=== PATIENT | female | born 1960 ===

== ENCOUNTER → 2023-09-10 | Outpatient (CLI) | payer MEDICARE ==
--- NOTE | 2023-09-10 08:27 | US ---
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 No HTN. High cholesterol- no meds. No history AAA. TECHNIQUE: Multiple sonographic images of the abdominal aorta are obtained. 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
--- NOTE | 2023-09-10 10:38 | CA ---
Transthoracic Echo Report Name: Hafsa Luna Age: 63 Gender: F : 1960 Exam Date: 09/10/2023 08:03 Exam Location: [facility] Ht (in): 65 Wt (lb): 170 Ordering Physician: Brad Huerta DO Attending/Referring Phys: Erica Sullivan PAC Agent Contract Clerk Malena Guadalupe RDCS Procedure CPT: Indications: I77.810 THORACIC AORTIC ECTASIA R07.89 CHEST PAIN Cardiac Hx: Technical Quality: Fair Contrast 1: Total Dose (mL): Contrast 2: Total Dose (mL): MEASUREMENTS (Male / Female) Normal Values 2D ECHO LV Diastolic Diameter PLAX 4.7 cm 4.2 - 5.9 / 3.9 - 5.3 cm LV Systolic Diameter PLAX 3.3 cm IVS Diastolic Thickness 1.1 cm 0.6 - 1.0 / 0.6 - 0.9 cm LVPW Diastolic Thickness 1.0 cm 0.6 - 1.0 / 0.6 - 0.9 cm LV Relative Wall Thickness 0.4 RV Internal Dim ED PLAX 2.9 cm LA Systolic Diameter LX 3.3 cm 3.0 - 4.0 / 2.7 - 3.8 cm LV Diastolic Volume MOD BP 54.8 cm??? 67 - 155 / 56 - 104 cm??? LV Systolic Volume MOD BP 27.4 cm??? 22 - 58 / 19 - 49 cm??? LV Ejection Fraction MOD BP 50.0 % >= 55 % LV Cardiac Index MOD BP 1210.4 cm???/min???m??? LV Diastolic Volume MOD 4C 51.0 cm??? LV Systolic Volume MOD 4C 24.8 cm??? LV Ejection Fraction MOD 4C 51.4 % LV Cardiac Index MOD 4C 1158.1 cm???/min???m??? LV Diastolic Length 4C 6.2 cm LV Systolic Length 4C 5.8 cm LV Diastolic Volume MOD 2C 58.1 cm??? LV Systolic Volume MOD 2C 27.3 cm??? LV Ejection Fraction MOD 2C 53.0 % LV Cardiac Index MOD 2C 1358.4 cm???/min???m??? LV Diastolic Length 2C 6.4 cm LV Systolic Length 2C 6.6 cm M-MODE Aortic Root Diameter MM 3.1 cm LA Systolic Diameter MM 3.0 cm LA Ao Ratio MM 1.0 DOPPLER AV Peak Velocity 114.9 cm/s AV Peak Gradient 5.3 mmHg Mitral E Point Velocity 51.3 cm/s Mitral A Point Velocity 97.7 cm/s Mitral E to A Ratio 0.5 MV Deceleration Time 93.4 ms MV E' Velocity 4.9 cm/s Mitral E to MV E' Ratio 10.5 TR Peak Velocity 229.6 cm/s TR Peak Gradient 21.1 mmHg Right Ventricular Systolic Press 31.1 mmHg FINDINGS Left Ventricle Left ventricular ejection fraction is estimated at 50-55 %. No obvious regional wall motion abnormalities. Mild concentric LVH Right Ventricle Normal right ventricular size. Right ventricular systolic pressure within normal limits. Right Atrium Normal right atrial size. Left Atrium Normal left atrial size. Mitral Valve Structurally normal mitral valve. Mild mitral regurgitation. Aortic Valve Trileaflet aortic valve. No aortic valve stenosis or regurgitation. Tricuspid Valve Structurally normal tricuspid valve. Mild tricuspid regurgitation. Pulmonic Valve Pulmonic valve not well visualized. No pulmonic regurgitation. Pericardium No pericardial effusion. Aorta Normal size aortic root and proximal ascending aorta. CONCLUSIONS Left ventricular ejection fraction is estimated at 50-55 %. No obvious regional wall motion abnormalities. Mild concentric LVH. Mild MR No significant chamber size abnormality No peripheral effusion Previewed by: Dr Pollo Kapaln (Electronically Signed) Final Date: 10 September 2023 10:37
== END | disposition home or self-care (01) ==
LOC: RADUSWWP 07:29
PROVIDERS: ATTEND Family Medicine
DX: I34.0 Nonrheumatic mitral (valve) insufficiency (principal); I51.7 Cardiomegaly; I77.810 Thoracic aortic ectasia; E78.00 Pure hypercholesterolemia, unspecified; R07.89 Other chest pain
CPT/HCPCS: 76706; 93306

== ENCOUNTER 2023-09-24 12:22 | Observation (INO) | payer MEDICARE ==
[2023-09-24 12:43] LABS: Basophils # (A) 0.1 k/uL (0-0.2); Basophils % (A) 1 %; Eosinophils # (A) 0.1 k/uL (0-0.7); Eosinophils % (A) 2 %; HCT 44.4 % (34.0-46.0); Lymphocytes # (A) 2.5 k/uL (1.0-4.8); Lymphocytes % (A) 43 %; MCH 30.1 pg (25.0-35.0); MCHC 33.7 g/dL (31.0-37.0); MCV 89.1 fL (80.0-100.0); Mean Platelet Volume 6.9; Monocytes # (A) 0.3 k/uL (0-1.0); Monocytes % (A) 5 %; Neutrophils # (A) 2.7 k/uL (1.3-7.7); Neutrophils % (A) 47 %; Platelet Count 252 k/uL (150-450); RBC 4.98 m/uL (3.80-5.40); RDW 12.5 % (11.5-15.5); WBC 5.8 k/uL (3.8-10.6)
--- NOTE | 2023-09-24 12:51 | ED ---
General Adult HPI - General Chief complaint: Arrhythmia/Palpitations Stated complaint: Heart Time Seen by Provider: 09/24/23 12:35 Source: patient, RN notes reviewed, old records reviewed Mode of arrival: EMS Limitations: no limitations - History of Present Illness Initial comments: This is a 63-year-old female who presents to the emergency department stating that she has a history of high blood pressure. Patient states for the last few weeks has been short of breath. Patient states these episodes last for about 15 minutes or so. Patient states the episode today was the worst. Patient denies any kind of chest pain for the last 2 weeks. Patient states it does not seem to be associated with exertion. Patient states lately when it occurs she has been having some fluttering in her chest and she feels like she might pass out but does not pass out. Patient states she recently had an echo but has never had a catheterization and not a recent stress test. Patient denies any high cholesterol smoking or diabetes. Patient denies any family history of heart disease. Patient [place] any recent fever chills or cough or patient has any abdominal pain. Patient states currently she does not feel short of breath while lying in bed - Related Data Home Medications Medication Instructions Recorded Confirmed Cholecalciferol [Vitamin D3 (25 25 mcg PO DAILY 09/24/23 09/24/23 Mcg = 1000 Iu)] FLUoxetine HCL 20 mg PO DIRECTED 09/24/23 09/24/23 Levothyroxine Sodium [Synthroid] 25 mcg PO DAILY 09/24/23 09/24/23 [place]-3/Dha/Epa/Fish Oil [Fish Oil 1 cap PO DAILY 09/24/23 09/24/23 1,000 mg Softgel] Rosuvastatin Calcium 5 mg PO HS 09/24/23 09/24/23 Ubidecarenone [Coenzyme Q10] 200 mg PO DAILY 09/24/23 09/24/23 buPROPion SR [Wellbutrin SR] 100 mg PO Q48H 09/24/23 09/24/23 Allergies Allergy/AdvReac Type Severity Reaction Status Date / Time codeine Allergy Nausea & Verified 09/24/23 13:48 Vomiting latex Allergy Rash/Hives Verified 09/24/23 13:48 levofloxacin [From Levaquin] Allergy Rash/Hives Verified 09/24/23 13:48 Review of Systems ROS Statement: Those systems with pertinent positive or pertinent negative responses have been documented in the HPI. ROS Other: All systems not noted in ROS Statement are negative. Past Medical History Past Medical History: Hyperlipidemia, Hypertension Past Surgical History: Tubal Ligation Past Psychological History: Depression Smoking Status: Never smoker General Exam - General Exam Comments Initial Comments: GENERAL: Patient is well-developed and well-nourished. Patient is nontoxic and well- hydrated and is in mild distress. ENT: Neck is soft and supple. No significant lymphadenopathy is noted. Oropharynx is clear. Moist mucous membranes. Neck has full range of motion without eliciting any pain. EYES: The sclera were anicteric and conjunctiva were pink and moist. Extraocular movements were intact and pupils were equal round and reactive to light. Eyelids were unremarkable. PULMONARY: Unlabored respirations. Good breath sounds bilaterally. No audible rales rhonchi or wheezing was noted. CARDIOVASCULAR: There is a regular rate and rhythm without any murmurs gallops or rubs. ABDOMEN: Soft and nontender with normal bowel sounds. SKIN: Skin is clear with no lesions or rashes and otherwise unremarkable. NEUROLOGIC: Patient is alert and oriented x3. Cranial nerves II through XII are grossly intact. Motor and sensory are also intact. Normal speech, volume and content. Symmetrical smile. MUSCULOSKELETAL: Normal extremities with adequate strength and full range of motion. LYMPHATICS: No significant lymphadenopathy is noted PSYCHIATRIC: Normal psychiatric evaluation. Limitations: no limitations Course Vital Signs 09/24/23 09/24/23 12:24 13:00 Temperature 98.6 F Pulse Rate 104 H 100 Respiratory 20 18 Rate Blood Pressure 170/84 147/97 O2 Sat by Pulse 99 95 Oximetry Medical Decision Making - Medical Decision Making EKG is interpreted by myself. EKG shows sinus tachycardia with occasional PVC at 104 bpm parables 169 QRS is 87 QT interval is 343 QTc is 403. Patient's EKG shows some ST segment depression in the inferior leads. Patient also has some slight ST segment depression in the precordial leads V3, V4, V5 and V6. Was pt. sent in by a medical professional or institution (, [facility], STAFF WRITER, urgent care, hospital, or residential...) When possible be specific @ -Patient was sent in by his primary medical care doctor Did you speak to anyone other than the patient for history (EMS, parent, family, police, friend...)? What history was obtained from this source @ -No Did you review nursing and triage notes (agree or disagree)? Why? @ -I reviewed and agree with nursing and triage notes Were old charts reviewed (outside hosp., previous admission, EMS record, old EKG, old radiological studies, urgent care reports/EKG's, residential records)? Report findings @ -I reviewed prior charts and prior lab work Differential Diagnosis (chest pain, altered mental status, abdominal pain women, abdominal pain men, vaginal bleeding, weakness, fever, dyspnea, syncope, headache, dizziness, GI bleed, back pain, seizure, CVA, palpatations, mental health, musculoskeletal)? @ -Differential Dyspnea: Coronary syndrome, arrhythmia, tamponade, asthma, COPD, pulmonary embolism, pneumonia, pneumothorax, pulmonary effusion, anaphylaxis, diabetic ketoacidosis, flailed chest, pulmonary contusion, diaphragmatic rupture, anemia, neuromuscular, this is not meant to be an all-inclusive list. EKG interpreted by me (3pts min.). @ -As above X-rays interpreted by me (1pt min.). @ -Chest x-ray shows no acute abnormality CT interpreted by me (1pt min.). @ -None done U/S interpreted by me (1pt. min.). @ -None done What testing was considered but not performed or refused? (CT, X-rays, U/S, labs)? Why? @ -None What meds were considered but not given or refused? Why? @ -None Did you discuss the management of the patient with other professionals (professionals i.e. , PA, STAFF WRITER, lab, RT, psych nurse, social worker masters, billing typist, teacher, third officer, case loader operator)? Give summary @ -I spoke with [facility] physicians and they agreed to admit the patient Was smoking cessation discussed for >3mins.? @ -No Was critical care preformed (if so, how long)? @ -No Were there social determinants of health that impacted care today? How? (Homelessness, low income, unemployed, alcoholism, drug addiction, transportation, low edu. Level, literacy, decrease access to med. care, skilled nursing, rehab)? @ -No Was there de-escalation of care discussed even if they declined (Discuss DNR or withdrawal of care, Hospice)? DNR status @ -No What co-morbidities impacted this encounter? (DM, HTN, Smoking, COPD, CAD, Cancer, CVA, ARF, Chemo, Hep., AIDS, mental health diagnosis, sleep apnea, morbid obesity)? @ -None Was patient admitted / discharged? Hospital course, mention meds given and route, prescriptions, significant lab abnormalities, going to OR and other pertinent info. @ -Chest x-ray showed no acute abnormality lab work was within normal range but patient continued to have episodes of dyspnea and feeling as though she was going to pass out for the last 2 weeks so I was worried about an arrhythmia and the fact that the patient had EKG changes I felt the patient need to be admitted sound physicians agreed to admit. Undiagnosed new problem with uncertain prognosis? @ -No Drug Therapy requiring intensive monitoring for toxicity (Heparin, Nitro, Insulin, Cardizem)? @ -No Were any procedures done? @ -No Diagnosis/symptom? @ -Dyspnea Acute, or Chronic, or Acute on Chronic? @ -Acute Uncomplicated (without systemic symptoms) or Complicated (systemic symptoms)? @ -Complicated Side effects of treatment? @ -No Exacerbation, Progression, or Severe Exacerbation? @ -No Poses a threat to life or bodily function? How? (Chest pain, [place], [place], pneumonia, PE, COPD, DKA, ARF, appy, cholecystitis, CVA, Diverticulitis, Homicidal, Suicidal, threat to staff... and all critical care pts) @ -Yes this could lead to hypoxia and endorgan dysfunction Diagnosis/symptom? @ -Palpitations Acute, or Chronic, or Acute on Chronic? @ -Acute Uncomplicated (without systemic symptoms) or Complicated (systemic symptoms)? @ -Complicated Side effects of treatment? @ -[none] Exacerbation, Progression, or Severe Exacerbation] @ -[no] Poses a threat to life or bodily function? @ -Yes patient could have a lethal arrhythmia - Lab Data Result diagrams: 09/24/23 12:29 09/24/23 12: Lab Results 09/24/23 09/24/23 09/24/23 Range/Units 12:29 12: 12: WBC 5.8 (3.8-10.6) k/uL RBC 4.98 (3.80-5.40) m/uL Hgb 15.0 (11.4-16.0) gm/dL Hct 44.4 (34.0-46.0) % MCV 89.1 (80.0-100.0) fL MCH 30.1 (25.0-35.0) pg MCHC 33.7 (31.0-37.0) g/dL RDW 12.5 (11.5-15.5) % Plt Count 252 (150-450) k/uL MPV 6.9 Neutrophils % 47 % Lymphocytes % 43 % Monocytes % 5 % Eosinophils % 2 % Basophils % 1 % Neutrophils # 2.7 (1.3-7.7) k/uL Lymphocytes # 2.5 (1.0-4.8) k/uL Monocytes # 0.3 (0-1.0) k/uL Eosinophils # 0.1 (0-0.7) k/uL Basophils # 0.1 (0-0.2) k/uL PT 10.6 (10.0-12.5) sec INR 1.0 (<1.2) APTT 23.5 (22.0-30.0) sec D-Dimer 0.45 (<0.60) mg/L FEU Sodium 141 (137-145) mmol/L Potassium 4.3 (3.5-5.1) mmol/L Chloride 112 H (98-107) mmol/L Carbon Dioxide 21 L (22-30) mmol/L Anion Gap 8 mmol/L BUN 15 (7-17) mg/dL Creatinine 0.87 (0.52-1.04) mg/dL Est GFR (CKD-EPI)AfAm 81 (>60 ml/min/1.73 sqM) Est GFR (CKD-EPI)NonAf 70 (>60 ml/min/1.73 sqM) Glucose 123 H (74-99) mg/dL Calcium 10.6 H (8.4-10.2) mg/dL Magnesium 2.2 (1.6-2.3) mg/dL Total Bilirubin 0.7 (0.2-1.3) mg/dL AST 31 (14-36) U/L ALT 29 (4-34) U/L Alkaline Phosphatase 98 (38-126) U/L Troponin I (0.000-0.034) ng/mL Total Protein 7.4 (6.3-8.2) g/dL Albumin 4.3 (3.5-5.0) g/dL TSH 1.060 (0.465-4.680) mIU/L Urine Color Urine Appearance (Clear) Urine pH (5.0-8.0) Ur Specific [place] (1.001-1.035) Urine Protein (Negative) Urine Glucose (UA) (Negative) Urine Ketones (Negative) Urine Blood (Negative) Urine Nitrite (Negative) Urine Bilirubin (Negative) Urine Urobilinogen (<2.0) mg/dL Ur Leukocyte Esterase (Negative) 09/24/23 09/24/23 Range/Units 12:29 12:44 WBC (3.8-10.6) k/uL RBC (3.80-5.40) m/uL Hgb (11.4-16.0) gm/dL Hct (34.0-46.0) % MCV (80.0-100.0) fL MCH (25.0-35.0) pg MCHC (31.0-37.0) g/dL RDW (11.5-15.5) % Plt Count (150-450) k/uL MPV Neutrophils % % Lymphocytes % % Monocytes % % Eosinophils % % Basophils % % Neutrophils # (1.3-7.7) k/uL Lymphocytes # (1.0-4.8) k/uL Monocytes # (0-1.0) k/uL Eosinophils # (0-0.7) k/uL Basophils # (0-0.2) k/uL PT (10.0-12.5) sec INR (<1.2) APTT (22.0-30.0) sec D-Dimer (<0.60) mg/L FEU Sodium (137-145) mmol/L Potassium (3.5-5.1) mmol/L Chloride (98-107) mmol/L Carbon Dioxide (22-30) mmol/L Anion Gap mmol/L BUN (7-17) mg/dL Creatinine (0.52-1.04) mg/dL Est GFR (CKD-EPI)AfAm (>60 ml/min/1.73 sqM) Est GFR (CKD-EPI)NonAf (>60 ml/min/1.73 sqM) Glucose (74-99) mg/dL Calcium (8.4-10.2) mg/dL Magnesium (1.6-2.3) mg/dL Total Bilirubin (0.2-1.3) mg/dL AST (14-36) U/L ALT (4-34) U/L Alkaline Phosphatase (38-126) U/L Troponin I <0.012 (0.000-0.034) ng/mL Total Protein (6.3-8.2) g/dL Albumin (3.5-5.0) g/dL TSH (0.465-4.680) mIU/L Urine Color Colorless Urine Appearance Clear (Clear) Urine pH 8.0 (5.0-8.0) Ur Specific [place] 1.003 (1.001-1.035) Urine Protein Negative (Negative) Urine Glucose (UA) Negative (Negative) Urine Ketones Negative (Negative) Urine Blood Negative (Negative) Urine Nitrite Negative (Negative) Urine Bilirubin Negative (Negative) Urine Urobilinogen <2.0 (<2.0) mg/dL Ur Leukocyte Esterase Negative (Negative) Disposition Clinical Impression: Palpitations, Dyspnea Disposition: ADMITTED IP TO THIS [facility] Referrals: None,Stated [REFERRING] - 1-2 days Time of Disposition: 15:03
[2023-09-24 12:53] LABS: Partial Thromboplastin Time 23.5 sec (22.0-30.0); Prothrombin Time 10.6 sec (10.0-12.5)
[2023-09-24 12:56] LABS: Appearance,Urine Clear (Clear); Bilirubin,Urine Negative (Negative); Blood,Urine Negative (Negative); Color,Urine Colorless; Glucose,Urine (UA) Negative (Negative); Ketones,Urine Negative (Negative); Leukocyte Esterase,Urine Negative (Negative); Nitrite,Urine Negative (Negative); Protein,Urine Negative (Negative); Specific Gravity,Urine 1.003 (1.001-1.035); Urobilinogen,Urine <2.0 mg/dL (<2.0)
[2023-09-24 12:56] LABS: ALT 29 U/L (4-34); AST 31 U/L (14-36); African American GFR (CKD) 81 (>60 ml/min/1.73 sqM); Albumin 4.3 g/dL (3.5-5.0); Alkaline Phosphatase 98 U/L (38-126); Anion Gap 8 mmol/L; Blood Urea Nitrogen 15 mg/dL (7-17); Calcium 10.6 mg/dL (8.4-10.2); Carbon Dioxide 21 mmol/L (22-30); Chloride 112 mmol/L (98-107); Glucose 123 mg/dL (74-99); Magnesium 2.2 mg/dL (1.6-2.3); Non-African American GFR(CKD) 70 (>60 ml/min/1.73 sqM); Potassium 4.3 mmol/L (3.5-5.1); Sodium 141 mmol/L (137-145); Total Bilirubin 0.7 mg/dL (0.2-1.3); Total Protein 7.4 g/dL (6.3-8.2)
--- NOTE | 2023-09-24 13:15 | XR ---
EXAMINATION TYPE: XR chest 2V DATE OF EXAM: 09/24/2023 1:09 PM CLINICAL INDICATION:Female, 63 years old with history of dysrhythmia; COMPARISON: Chest radiographs from 09/24/2023. TECHNIQUE: XR chest 2V Frontal and lateral views of the chest. FINDINGS: Lungs/Pleura: There is flattening of the diaphragm with increased lucency of the lungs. No evidence o f pneumothorax, pleural effusion or focal consolidation. Pulmonary vascularity: Unremarkable. Heart/mediastinum: Cardiomediastinal silhouette is unremarkable. Musculoskeletal: No acute osseous pathology. Other findings: None IMPRESSION: 1. No acute cardiopulmonary disease process. 2. COPD changes.
[2023-09-24] MEDS: LORazepam 2 MG/ML INJ IV STA (14:52)
[2023-09-24] MEDS ORDERED: NITROGLYCERIN SL TABS 0.4 MG TAB SUBLINGUAL PRN (15:04)
--- NOTE | 2023-09-24 16:05 | CT ---
CTA CHEST EXAMINATION TYPE: CT chest angio for PE DATE OF EXAM: 09/24/2023 INDICATION: Tachycardia, shortness of breath CT DLP: 305.3 mGycm, Automated exposure control for dose reduction was used. CONTRAST: Patient injected with 61ml mL of Isovue 370. COMPARISON: None TECHNIQUE: CT of the chest is performed on a spiral scan at 2 mm thick sections. Study is performed with intravenous contrast timed for evaluation for pulmonary embolism. This will limit additional po rtions of the evaluation. 3-D MIP images reconstructed by the technologist are reviewed on the compu ter in the coronal and sagittal planes. FINDINGS: No persistent filling defects are evident to suggest an acute pulmonary embolism. No mediastinal or hilar adenopathy enlarged by CT criteria is evident. The ascending aorta diameter at the level of the main pulmonary artery is 3.3 cm. The main pulmonary artery diameter at the bifurcation is 2.4 cm. Lung windows are clear. Limited CT sections were through the upper abdomen. Upper abdomen appears unremarkable. IMPRESSION: 1. No acute pulmonary embolism 2. No acute pulmonary process.
--- NOTE | 2023-09-24 16:55 | P.HPIM ---
History of Present Illness H&P Date: 09/24/23 Patient is a 63-year-old female with history of dyslipidemia, hypothyroidism, depression presenting with episodes of palpitations. She claims that her palpitations started 2 months ago. She was started on Wellbutrin about 4 months ago. After the palpitations started, she has to her PCP to discontinue the Wellbutrin. She has since slowly been coming down on Wellbutrin. Each day she takes the Wellbutrin, she notices palpitations. Usually occurs 1-2 times per day. She also has lightheadedness, shortness of breath associated with palpitations. She denies any chest pain, abdominal pain, nausea, vomiting, urinary or bowel complaints. She denies any recent travel history, lower extremity swelling, or new rashes. Upon experiencing similar palpitations today, she decided to go to her PCP, and was subsequently referred to the ER. In the ED, temperature was 98.6, pulse 105, respiratory rate 20, blood pressure 170/84. EKG independently interpreted, shows sinus tachycardia with nonspecific ST changes. Chest x-ray independently interpreted, shows no acute process. WBC 5.8, hemoglobin 15, bicarb 21, anion gap 8, creatinine 0.7, calcium 10.6, troponin negative, urinalysis negative, TSH 1.060. Patient received 0.5 of IV Ativan in the ED. CT chest angio did not show any acute PE process. Patient admitted for paroxysmal arrhythmia. Cardiology consulted. Pertinent positives and negatives as discussed in HPI, a complete review of systems was performed and all other systems are negative. Patient seen and examined at bedside. Vital signs reviewed General: nontoxic, no distress, appears at stated age Derm: warm, dry Head: atraumatic, normocephalic, symmetric Eyes: EOMI, no lid lag, anicteric sclera, pupils equal round reactive to light ENT: Nose and ears atraumatic Neck: No thyromegaly, supple Mouth: no lip lesion, mucus membranes moist Cardiovascular: S1S2 reg, no murmur, no edema Lungs: clear to auscultation bilateral, no rhonchi, no rales, no wheeze, no accessory muscle use Abdominal: soft, nontender to palpation, no guarding, no appreciable organomegaly Ext: no gross muscle atrophy, muscle strength muscle strength 5 out of 5 in all 4 extremities, no contractures Neuro: CN II-XII grossly intact Psych: Alert, oriented, appropriate affect Assessment/Plan: Active: Symptomatic paroxysmal arrhythmia -Appears to be sinus tachycardia, likely in the setting of anxiety -May possibly be related to Wellbutrin as well -Continue telemetry -Continue to trend troponin -Cardiology consulted -TSH within normal limits -She recently had an echocardiogram on 09/10/2023 which showed LVEF 50 to 55% -May benefit from event monitor Mild hypercalcemia -Unlikely to be cause of current tachycardia -Repeat BMP tomorrow Chronic: Dyslipidemia Hypothyroidism Depression The patient is admitted with an anticipated less than 2 midnight stay as observation status for evaluation of arrhythmia. Surrogate decision-maker: Spouse CODE STATUS: Full code DVT prophylaxis: lovenox Anticipated discharge date: Pending clinical course Anticipated discharge place: Pending clinical course A total of 66 minutes was spent on the care of this complex patient more than 50% of the time was spent in counseling and care coordination. Past Medical History Past Medical History: Hyperlipidemia, Hypertension Past Surgical History: Tubal Ligation Past Psychological History: Depression Smoking Status: Never smoker Medications and Allergies Home Medications Medication Instructions Recorded Confirmed Type Cholecalciferol [Vitamin D3 (25 25 mcg PO DAILY 09/24/23 09/24/23 History Mcg = 1000 Iu)] FLUoxetine HCL 20 mg PO DIRECTED 09/24/23 09/24/23 History Levothyroxine Sodium [Synthroid] 25 mcg PO DAILY 09/24/23 09/24/23 History [place]-3/Dha/Epa/Fish Oil [Fish Oil 1 cap PO DAILY 09/24/23 09/24/23 History 1,000 mg Softgel] Rosuvastatin Calcium 5 mg PO HS 09/24/23 09/24/23 History Ubidecarenone [Coenzyme Q10] 200 mg PO DAILY 09/24/23 09/24/23 History buPROPion SR [Wellbutrin SR] 100 mg PO Q48H 09/24/23 09/24/23 History Allergies Allergy/AdvReac Type Severity Reaction Status Date / Time codeine Allergy Nausea & Verified 09/24/23 13:48 Vomiting latex Allergy Rash/Hives Verified 09/24/23 13:48 levofloxacin [From Levaquin] Allergy Rash/Hives Verified 09/24/23 13:48 Physical Exam Vitals: Vital Signs Temp Pulse Resp BP Pulse Ox 02/13/24 16:00 90 20 148/97 98 09/24/23 14:56 100 18 154/104 09/24/23 13:00 100 18 147/97 95 09/24/23 12:24 98.6 F 104 H 20 170/84 99 Intake and Output 09/24/23 09/24/23 09/24/23 06:59 14:59 22:59 Other: Weight 77.111 kg Results CBC & Chem 7: 09/24/23 12:29 09/24/23 12:29 Labs: Abnormal Lab Results - Last 24 Hours (Table) 09/24/23 Range/Units 12:29 Chloride 112 H (98-107) mmol/L Carbon Dioxide 21 L (22-30) mmol/L Glucose 123 H (74-99) mg/dL Calcium 10.6 H (8.4-10.2) mg/dL
[2023-09-24] MEDS: ATORVASTATIN 10 MG TAB PO SCH (23:13)
[2023-09-25] MEDS: LEVOTHYROXINE 25 MCG TAB PO SCH (06:14)
[2023-09-25 07:28] LABS: African American GFR (CKD) 74 (>60 ml/min/1.73 sqM); Anion Gap 8 mmol/L; Blood Urea Nitrogen 13 mg/dL (7-17); Calcium 10.6 mg/dL (8.4-10.2); Carbon Dioxide 24 mmol/L (22-30); Chloride 108 mmol/L (98-107); Glucose 104 mg/dL (74-99); Non-African American GFR(CKD) 64 (>60 ml/min/1.73 sqM); Potassium 3.9 mmol/L (3.5-5.1); Sodium 140 mmol/L (137-145)
[2023-09-25] MEDS ORDERED: ASPIRIN 325 MG TAB PO SCH (09:00)
[2023-09-25] MEDS: ASPIRIN 81 MG PO SCH (09:09)
[2023-09-25] MEDS: ENOXAPARIN 40 MG/0.4 ML SYRINGE SQ SCH (09:09)
[2023-09-25] MEDS: LOSARTAN 25 MG TAB PO SCH (09:09)
--- NOTE | 2023-09-25 09:46 | P.CRDCN ---
History of Present Illness History of present illness: HISTORY OF PRESENT ILLNESS: This is a 63-year-old female with a past medical history significant for chronic back pain, hypothyroidism, seasonal affective disorder, and hyperlipidemia. Ward chaidez does not follow with a payroll examiner. We have been asked to see the patient in consultation for pain and shortness of breath. Patient examined at the bedside in the emergency room. Patient states over the past couple weeks she has been noticing her blood pressure has been running on the higher side. She does not have a history of hypertension and does not take any antihypertensive medications on an outpatient basis. She is trying to wean off of her Wellbutrin. She states that she takes 100 mg daily and has been taking it every other day. She states yesterday she began to have palpitations and fluttering in her chest. She also reports having some chest tightness along with shortness of breath, diaphoresis, and dizziness. She went to her PCP office who obtained an EKG and EMS was called to bring the patient to the hospital. The patient currently denies any chest pain or pressure. She currently denies any shortness of breath. Patient has chronic back pain and has an appointment with her chiropractor today. She is somewhat hyperfocused on leaving the hospital to make her appointment today. She is a nonsmoker. She reports occasional alcohol use. She reports a history of coronary artery disease in her grandparents. She states that she recently established with a new PCP about a month ago. She was sent for an outpatient echocardiogram due to her recent symptoms. Patient's blood pressures have been elevated since coming to the hospital with a systolic greater than 140. DIAGNOSTICS: - EKG reveals sinus mechanism with diffuse ST depression. No previous EKG available for comparison. - Chest xray negative for acute process. COPD. - Chest CTA: Negative for pulmonary embolism. - Laboratory data: D-dimer 0.45. Troponin negative x 3. TSH 1.060. - Current home cardiac medications include rosuvastatin 5 mg at night. - Most recent echocardiogram obtained in August 2023 revealed ejection fraction 50 to 55%, mild concentric LVH, mild MR - Cardiac catheterization history: Patient denies REVIEW OF SYSTEMS: At the time of my exam: CONSTITUTIONAL: Denies fever or chills. HEENT: Denies blurred vision, vision changes, or eye pain. Denies hemoptysis CARDIOVASCULAR: Denies chest pain. Denies orthopnea. Denies PND. Denies palpitations RESPIRATORY: Denies shortness of breath. GASTROINTESTINAL: Denies abdominal pain. Denies nausea or vomiting. HEMATOLOGIC: Denies bleeding disorders. GENITOURINARY: Denies any blood in urine. SKIN: Denies pruitis. Denies rash. PHYSICAL EXAM: VITAL SIGNS: Reviewed. GENERAL: Well-developed in no acute distress. HEENT: Head is normocephalic. Pupils are equal, round. Sclerae anicteric. Mucous membranes of the mouth are moist. Neck supple. No JVD or thyromegaly LUNGS: Respirations even and unlabored. Lungs essentially clear to auscultation bilaterally. HEART: Regular rate and rhythm. S1 and S2 heard. ABDOMEN: Soft. Nondistended. Nontender. EXTREMITIES: Normal range of motion. No clubbing or cyanosis. Peripheral pulses intact. No lower extremity edema NEUROLOGIC: Awake and alert. Oriented x 3. ASSESSMENT: Palpitations Chest pain, troponin negative x 3 Hypertension Hyperlipidemia Chronic back pain, sees a chiropractor on an outpatient basis Seasonal affective disorder, currently weaning off Wellbutrin Hypothyroidism PLAN: An acute coronary event has been ruled out No need to repeat echocardiogram as this was performed last month Begin aspirin 81 mg daily Begin losartan 25 mg daily Begin metoprolol succinate 25 mg daily starting tomorrow (due to stress testing today) Patient to undergo stress echocardiogram today Consider outpatient event monitor Further recommendations pending patient course Nurse practitioner note has been reviewed by physician. Signing provider agrees with the documented findings, assessment, and plan of care documented by MAINTENANCE SERVICE DISPATCHER as a scribe. Past Medical History Past Medical History: Hyperlipidemia, Hypertension Past Surgical History: Tubal Ligation Past Psychological History: Depression Smoking Status: Never smoker Medications and Allergies Home Medications Medication Instructions Recorded Confirmed Type Cholecalciferol [Vitamin D3 (25 25 mcg PO DAILY 09/24/23 09/24/23 History Mcg = 1000 Iu)] FLUoxetine HCL 20 mg PO DIRECTED 09/24/23 09/24/23 History Levothyroxine Sodium [Synthroid] 25 mcg PO DAILY 09/24/23 09/24/23 History [place]-3/Dha/Epa/Fish Oil [Fish Oil 1 cap PO DAILY 09/24/23 09/24/23 History 1,000 mg Softgel] Rosuvastatin Calcium 5 mg PO HS 09/24/23 09/24/23 History Ubidecarenone [Coenzyme Q10] 200 mg PO DAILY 09/24/23 09/24/23 History buPROPion SR [Wellbutrin SR] 100 mg PO Q48H 09/24/23 09/24/23 History Allergies Allergy/AdvReac Type Severity Reaction Status Date / Time codeine Allergy Nausea & Verified 09/24/23 13:48 Vomiting latex Allergy Rash/Hives Verified 09/24/23 13:48 levofloxacin [From Levaquin] Allergy Rash/Hives Verified 09/24/23 13:48 Physical Exam Vitals: Vital Signs Temp Pulse Resp BP Pulse Ox 09/25/23 07:31 98.1 F 105 H 20 150/101 97 09/25/23 06:13 93 17 151/105 96 09/25/23 03:40 91 18 09/25/23 01:59 95 17 142/98 94 L 09/25/23 00:19 95 17 09/24/23 23:00 98.0 F 91 17 159/90 95 09/24/23 16:00 90 20 148/97 98 09/24/23 14:56 100 18 154/104 09/24/23 13:00 100 18 147/97 95 09/24/23 12:24 98.6 F 104 H 20 170/84 99 Results 09/24/23 12:29 09/25/23 07:00 Cardiac Enzymes 09/24/23 09/24/23 09/24/23 Range/Units 12:29 12:29 15:29 AST 31 (14-36) U/L Troponin I <0.012 <0.012 (0.000-0.034) ng/mL 09/24/23 Range/Units 19:07 AST (14-36) U/L Troponin I <0.012 (0.000-0.034) ng/mL Coagulation 09/24/23 Range/Units 12:29 PT 10.6 (10.0-12.5) sec APTT 23.5 (22.0-30.0) sec CBC 09/24/23 Range/Units 12:29 WBC 5.8 (3.8-10.6) k/uL RBC 4.98 (3.80-5.40) m/uL Hgb 15.0 (11.4-16.0) gm/dL Hct 44.4 (34.0-46.0) % Plt Count 252 (150-450) k/uL Comprehensive Metabolic Panel 09/24/23 09/25/23 Range/Units 12:29 07:00 Sodium 141 140 (137-145) mmol/L Potassium 4.3 3.9 (3.5-5.1) mmol/L Chloride 112 H 108 H (98-107) mmol/L Carbon Dioxide 21 L 24 (22-30) mmol/L BUN 15 13 (7-17) mg/dL Creatinine 0.87 0.94 (0.52-1.04) mg/dL Glucose 123 H 104 H (74-99) mg/dL Calcium 10.6 H 10.6 H (8.4-10.2) mg/dL AST 31 (14-36) U/L ALT 29 (4-34) U/L Alkaline Phosphatase 98 (38-126) U/L Total Protein 7.4 (6.3-8.2) g/dL Albumin 4.3 (3.5-5.0) g/dL Current Medications Generic Name Dose Route Start Last Admin Trade Name Freq PRN Reason Stop Dose Admin Atorvastatin Calcium 10 mg 09/24/23 21:00 09/24/23 23:13 Atorvastatin 10 Mg Tab PO 10 mg HS ROSE Administration Enoxaparin Sodium 40 mg 09/25/23 09:00 Enoxaparin 40 Mg/0.4 Ml Syringe SQ DAILY ROSE Levothyroxine Sodium 25 mcg 09/25/23 06:30 09/25/23 06:14 Levothyroxine 25 Mcg Tab PO 25 mcg DAILY@0630 ROSE Administration Nitroglycerin 0.4 mg 09/24/23 15:04 Nitroglycerin Sl Tabs 0.4 Mg Tab SUBLINGUAL Q5M PRN Chest Pain 09/24/23 12:29 09/25/23 07:00
[2023-09-25 11:48] LABS: Chol/HDL Ratio 3.59 Ratio; LDL Cholesterol,Calculated 79.7 mg/dL (0.0-131.0)
--- NOTE | 2023-09-25 14:34 | P.PN ---
Subjective Progress Note Date: 09/25/23 Hospital Course: 63-year-old female with history of dyslipidemia, hypothyroidism, depression presenting with episodes of palpitations. In the ED, temperature was 98.6, pulse 105, respiratory rate 20, blood pressure 170/84. EKG independently interpreted, shows sinus tachycardia with nonspecific ST changes. Chest x-ray independently interpreted, shows no acute process. WBC 5.8, hemoglobin 15, bicarb 21, anion gap 8, creatinine 0.7, calcium 10.6, troponin negative, urinalysis negative, TSH 1.060. Patient received 0.5 of IV Ativan in the ED. CT chest angio did not show any acute PE process. Patient admitted for palpitations and chest pain. Cardiology consulted. Subjective: Patient seen and examined at bedside. No acute events overnight. Pertinent positives and negatives as discussed above, a complete review of systems was performed and all other systems are negative. Vitals Signs Reviewed. General: Nontoxic, no distress, appears at stated age Derm: Warm, dry Head: Atraumatic, normocephalic, symmetric Eyes: EOMI, no lid lag, anicteric sclera Mouth: No lip lesion, mucus membranes moist Cardiovascular: S1S2 reg, tachycardic, no murmur Lungs: CTA bilateral, no rhonchi, no rales, no accessory muscle use Abdominal: Soft, nontender to palpation, no guarding, no appreciable organo megaly Ext: No gross muscle atrophy, no edema, no contractures Neuro: CN II-XI grossly intact, no focal neuro deficits Psych: Alert, oriented, appropriate affect Data Reviewed Today: Pertinent Labs: Sodium 140, creatinine 0.94, calcium 10.6, total cholesterol 174, LDL 79 Imaging: No new imaging Assessment and Plan: Palpitations Chest pain, rule out ACS Hypertension Seasonal affective disorder/depression Hypothyroidism Dyslipidemia -Cardiology note reviewed, stress test pending, consider outpatient event monitor, started on aspirin 81, losartan 25 daily, metoprolol 25 -Holding Wellbutrin -Continue levothyroxine 25 -Continue atorvastatin 10 Mild hypercalcemia, asymptomatic DVT ppx: lovenox Code status: FC Anticipated discharge place: pending clinical course Anticipated discharge time: pending clinical course Objective - Vital Signs Vital signs: Vital Signs Temp 98.2 F 09/25/23 13:14 Pulse 98 09/25/23 13:14 Resp 18 09/25/23 13:14 BP 153/96 09/25/23 13:14 Pulse Ox 95 09/25/23 13:14 FiO2 Intake & Output 09/24/23 09/25/23 09/25/23 18:59 06:59 18:59 Weight 77.111 kg - Labs CBC & Chem 7: 09/24/23 12:29 09/25/23 07:00 Labs: Abnormal Lab Results - Last 24 Hours (Table) 09/25/23 09/25/23 Range/Units 07:00 07:00 Chloride 108 H (98-107) mmol/L Glucose 104 H (74-99) mg/dL Calcium 10.6 H (8.4-10.2) mg/dL Triglycerides 229.00 H (0.00-149.00) mg/dL VLDL Cholesterol, Calc 45.80 H (5.00-40.00) mg/dL
--- NOTE | 2023-09-25 15:10 | CA ---
Stress Echo Report Hafsa Luna Age: 63 Gender: F : 1960 Exam Date: 09/25/2023 12:35 Exam Location: [facility] Stress Ht (in): 65 Wt (lb): 170 Ordering Physician: Cherelle Gerber Referring Physician: [id number] Clothes Designer: Jae Ladd Technologist Procedure CPT: Indication: CP ICD-9 Codes: Rhythm: Patient History: Cardiac Medications: SEE CHART Medications in past 24 hours: Contrast: N/A Stress Results Protocol: Binh Total dose(mL): NA Exercise Duration (min:sec): 6:[address] Depression (mm): Angina Score: Bell Score: METS: 8.1 Resting HR: 112 Resting BP: 135 / 81 Peak HR: 157 Peak BP: 206 / 81 Max Predicted HR: 155 101 % Max Predicted HR Target HR: 132 Double Product: 80689 Stress Summary: BP Response: Reason for Termination: Maximal effort/unable to continue Cardiac Symptoms: NO SYMPTOMS ECG Analysis Resting ECG: Stress ECG: Arrhythmia: Echo Analysis Resting Echo: Peak Echo Analysis: MEASUREMENTS (Male/Female) Normal Values CONCLUSIONS Patient underwent exercise stress echo with a Binh protocol treadmill stress test. Patient exercised into Stage 3 for a total of 6 minutes and 55 seconds reaching a total of 8.1 METS. Patient's maximum heart rate was 157 which represented 101% age- predicted maximum heart rate. Stress EKG portion: At baseline patient's EKG showed normal sinus rhythm, normal axis, mild 0.[address] depressions in the inferior lateral leads. At peak exercise, EKG showed mild accentuation of baseline EKG abnormalities. Stress echo portion: 2-D echocardiogram was performed in the parasternal long, personal short, apical 2 and apical four-chamber views at rest, peak exercise and in recovery. At baseline, echocardiogram showed left ventricular ejection fraction 55% without wall motion abnormalities. With peak exercise, echocardiogram shows improvement in left ventricular ejection fraction, increase contractility, decrease in left ventricular end systolic dimension without wall motion abnormalities consistent with a normal response to exercise. Conclusions: 1. Nonspecific stress EKG portion secondary baseline EKG abnormalities 2. Normal stress echo response to exercise without evidence of inducible ischemia. 3. Fair exercise capacity. Dr. Keven Flannery DO (Electronically Signed) Final Date: 25 September 2023 15:09
[2023-09-25 15:50] VITALS: BP 164/102; PULSE 104; RESP 16; TEMP 97.4
--- NOTE | 2023-09-25 16:51 | P.DS ---
Providers Date of admission: 09/24/23 15:05 Expected date of discharge: 09/25/23 Attending physician: Suhail Matthews MD Consults: 09/24/23 15:04 Consult Physician Urgent Consulting Provider: [facility] Consult Reason/Comments: Palpitations, dyspnea Do you want consulting provider notified?: Yes Primary care physician: [facility] Course: Discharge Diagnosis: Chest pain Hypertension Seasonal affective disorder/depression Hypothyroidism Dyslipidemia Hospital Course: 63-year-old female with history of dyslipidemia, hypothyroidism, depression pres enting with episodes of palpitations. In the ED, temperature was 98.6, pulse 105, respiratory rate 20, blood pressure 170/84. EKG independently interpreted, shows sinus tachycardia with nonspecific ST changes. Chest x-ray independently interpreted, shows no acute process. WBC 5.8, hemoglobin 15, bicarb 21, anion gap 8, creatinine 0.7, calcium 10.6, troponin negative, urinalysis negative, TSH 1.060. Patient received 0.5 of IV Ativan in the ED. CT chest angio did not show any acute PE process. Patient admitted for palpitations and chest pain. Cardiology consulted. Stress echo was negative. Wellbutrin discontinued. Patient to follow-up outpatient for event monitoring. Patient seen and examined at bedside. Vital signs reviewed and stable. General: Nontoxic, no distress, appears at stated age Derm: Warm, dry Head: Atraumatic, normocephalic, symmetric Eyes: EOMI, no lid lag, anicteric sclera Mouth: No lip lesion, mucus membranes moist Cardiovascular: S1S2 reg, no murmur Lungs: CTA bilateral, no rhonchi, no rales, no accessory muscle use Abdominal: Soft, nontender to palpation, no guarding, no appreciable organomegaly Ext: No gross muscle atrophy, no edema, no contractures Neuro: CN II-XI grossly intact, no focal neuro deficits Psych: Alert, oriented, appropriate affect A total of 33 minutes of time were spent preparing this complex discharge summary. Patient was discharged on 09/25/2023 at 16: 18. Patient Condition at Discharge: Stable Plan - Discharge Summary Discharge Rx Participant: No New Discharge Prescriptions: New Aspirin 81 mg PO DAILY #60 tab Losartan [Cozaar] 25 mg PO DAILY #60 tab Metoprolol Succinate (ER) [Toprol XL] 25 mg PO DAILY #60 tab Continue Levothyroxine Sodium [Synthroid] 25 mcg PO DAILY Ubidecarenone [Coenzyme Q10] 200 mg PO DAILY Cholecalciferol [Vitamin D3 (25 Mcg = 1000 Iu)] 25 mcg PO DAILY Rosuvastatin Calcium 5 mg PO HS [place]-3/Dha/Epa/Fish Oil [Fish Oil 1,000 mg Softgel] 1 cap PO DAILY Discontinued FLUoxetine HCL 20 mg PO DIRECTED buPROPion SR [Wellbutrin SR] 100 mg PO Q48H Discharge Medication List Cholecalciferol [Vitamin D3 (25 Mcg = 1000 Iu)] 25 mcg PO DAILY 09/24/23 [History] Levothyroxine Sodium [Synthroid] 25 mcg PO DAILY 09/24/23 [History] [place]-3/Dha/Epa/Fish Oil [Fish Oil 1,000 mg Softgel] 1 cap PO DAILY 09/24/23 [History] Rosuvastatin Calcium 5 mg PO HS 09/24/23 [History] Ubidecarenone [Coenzyme Q10] 200 mg PO DAILY 09/24/23 [History] Aspirin 81 mg PO DAILY #60 tab 09/25/23 [Rx] Losartan [Cozaar] 25 mg PO DAILY #60 tab 09/25/23 [Rx] Metoprolol Succinate (ER) [Toprol XL] 25 mg PO DAILY #60 tab 09/25/23 [Rx] Follow up Appointment(s)/Referral(s): Keven Flannery DO [STAFF PHYSICIAN] - 1 Week (office will call for appointment and to set up heart monitor if needed) None,Stated [REFERRING] - 1-2 days Patient Instructions/Handouts: Chest Pain (DC), Heart Palpitations (DC) Activity/Diet/Wound Care/Special Instructions: Please see cardiology. You may need an event monitor. Discharge Disposition: HOME SELF-CARE
[2023-09-26] MEDS ORDERED: METOPROLOL SUCCINATE (ER) 25 MG TAB.ER.24H PO SCH (09:00)
== END 2023-09-25 16:43 | disposition home or self-care (01) ==
LOC: EC 12:22 → 6NMEDSUR 15:05
PROVIDERS: ADMIT Student in an Organized Health Care Education/Training Program; ATTEND Student in an Organized Health Care Education/Training Program
DX: R00.2 Palpitations (principal); R07.89 Other chest pain; R00.0 Tachycardia, unspecified; R61 Generalized hyperhidrosis; E83.52 Hypercalcemia; R42 Dizziness and giddiness; I10 Essential (primary) hypertension; E03.9 Hypothyroidism, unspecified; E78.5 Hyperlipidemia, unspecified; F32.A Depression, unspecified; G89.29 Other chronic pain; M54.9 Dorsalgia, unspecified; Z79.890 Hormone replacement therapy; Z79.899 Other long term (current) drug therapy; Z91.040 Latex allergy status; Z88.1 Allergy status to other antibiotic agents; Z88.5 Allergy status to narcotic agent; Z82.49 Family history of ischemic heart disease and other diseases of the circulatory system
CPT/HCPCS: 96374; 99285; 36415; 93005; 93351; 85379; 80061; 80053; 80048; 83735; 84443; 84484; 85025; 85610; 85730; 81003; 71046; 71275; G0378 ×2; J2060; Q9967